=== PATIENT | female | born 1985 | race Caucasian/White ===

== ENCOUNTER 2016-05-17 17:08 | Emergency (ER) | payer BC ==
[2016-05-17 18:29] LABS: Hematocrit 38 % (35-47); Hemoglobin 12.8 g/dl (12.0-16.0); Mean Corpuscular HGB Conc 34 g/dl (31-36); Mean Corpuscular Hemoglobin 30 pg (27-31); Mean Corpuscular Volume 89 fL (80-97); Mean Platelet Volume 9 um3 (7.4-10.4); Red Blood Count 4.23 10^6/ul (4.0-5.4); Red Cell Distribution Width 13 % (10.5-15); White Blood Count 7.7 10^3/ul (3.5-10.8)
[2016-05-17 18:42] LABS: Albumin 4.6 g/dL (3.2-5.2); BUN/Creatinine Ratio 14.6 (8-20); Calcium 9.8 mg/dL (8.6-10.3); EGFR African American 106.8 (>60); Globulin 2.9 g/dL (2-4); Potassium 3.5 mmol/L (3.5-5.0); Total Bilirubin 0.8 mg/dL (0.2-1.0); Total Protein 7.5 g/dL (6.4-8.9)
[2016-05-17 18:43] LABS: Troponin I 0.03 ng/mL (<0.04)
--- NOTE | 2016-05-17 18:51 | ED ---
HPI Chest Pain - HPI Summary HPI Summary: 30 F w/ no PMH of chest pain for 2 days. She states the pain started out of no where yesterday with pain radiating to the left arm and dizziness. She states that she has had dizziness in the past but never associated with chest pain. She states yesterday she experienced the pain and she kept stumping due to the pain. Today she said the pain return and she got the dizziness and the pain down the left arm. She also got a new onset of frontal headache. She states she does not have a history of headaches nor does she have a family history of stroke. She denies any chest palpitations, SOB, weakness, or cough. She was seen in [facility] ED and was d/c home with meclizine. She states she has not taken the meclizine due to potential to make here drowsy. She has no cardiac risk factors: no smoking, OCP use, PMH of HTN and DM. Family history one uncle had bypass at age 73 no other cardiac history of history of DVT. - History of Current Complaint Chief Complaint: EDChestWallPain Time Seen by Provider: 05/17/16 18:20 Pain Intensity: 4 - Allergy/Home Medications Allergies/Adverse Reactions: Allergies Allergy/AdvReac Type Severity Reaction Status Date / Time Sulfa Drugs Allergy Intermediate Unknown Verified 04/17/15 11:29 Reaction Details PMH/Surg Hx/FS Hx/Imm Hx Endocrine/Hematology History: Denies: Hx Diabetes, Hx Thyroid Disease Cardiovascular History: Denies: Hx Hypertension Respiratory History: Reports: Hx Asthma - exercise induced. Denies: Hx Chronic Obstructive Pulmonary Disease (COPD) GI History: Denies: Hx Ulcer - Surgical History Surgery Procedure, Year, and Place: Surgical repair of cleft lip/palate @ 2weeks and aat 22yoa Infectious Disease History: No Infectious Disease History: Denies: Hx Clostridium Difficile, Hx Hepatitis, Hx Human Immunodeficiency Virus (HIV), Hx of Known/Suspected MRSA, Hx Shingles, Hx Tuberculosis, Hx Known/ Suspected VRE, Hx Known/Suspected VRSA, History Other Infectious Disease, Traveled Outside the [place] in Last 30 Days - Family History Known Family History: Positive: Cardiac Disease - Social History Alcohol Use: None Substance Use Type: Reports: None Smoking Status (MU): Never Smoked Tobacco Have You Smoked in the Last Year: No Review of Systems Negative: Fever Positive: Chest Pain. Negative: Palpitations Negative: Shortness Of Breath, Cough Negative: Abdominal Pain, Vomiting, Diarrhea, Nausea All Other Systems Reviewed And Are Negative: Yes Physical Exam Triage Information Reviewed: Yes Vital Signs On Initial Exam: Initial Vitals Temp Pulse Resp BP Pulse Ox 97.7 F 70 18 126/76 99 05/17/16 17:11 05/17/16 17:11 05/17/16 17:11 05/17/16 17:11 05/17/16 17:11 Vital Signs Reviewed: Yes Appearance: Positive: Well-Appearing Skin: Positive: Warm, Dry Head/Face: Positive: Normal Head/Face Inspection Eyes: Positive: Normal ENT: Positive: Normal ENT inspection, Pharynx normal, TMs normal Respiratory/Lung Sounds: Positive: Clear to Auscultation, Breath Sounds Present , Other - no reproducible chest pain Cardiovascular: Positive: Normal, RRR Abdomen Description: Positive: Nontender, Soft Bowel Sounds: Positive: Present Diagnostics - Vital Signs Vital Signs Temp Pulse Resp BP Pulse Ox 05/17/16 17:11 97.7 F 70 18 126/76 99 - Laboratory Lab Results: Lab Results 05/17/16 05/17/16 05/17/16 Range/Units 17:20 17:20 17:20 WBC 7.7 (3.5-10.8) 10^3/ul RBC 4.23 (4.0-5.4) 10^6/ul Hgb 12.8 (12.0-16.0) g/dl Hct 38 (35-47) % MCV 89 (80-97) fL MCH 30 (27-31) pg MCHC 34 (31-36) g/dl RDW 13 (10.5-15) % Plt Count 244 (150-450) 10^3/ul MPV 9 (7.4-10.4) um3 Neut % (Auto) 47.5 (38-83) % Lymph % (Auto) 44.3 (25-47) % Dent % (Auto) 6.4 (1-9) % Eos % (Auto) 1.3 (0-6) % Baso % (Auto) 0.5 (0-2) % Absolute Neuts (auto) 3.6 (1.5-7.7) 10^3/ul Absolute Lymphs (auto) 3.4 (1.0-4.8) 10^3/ul Absolute Monos (auto) 0.5 (0-0.8) 10^3/ul Absolute Eos (auto) 0.1 (0-0.6) 10^3/ul Absolute Basos (auto) 0 (0-0.2) 10^3/ul Absolute Nucleated RBC 0.01 10^3/ul Nucleated RBC % 0.1 D-Dimer, Quantitative < 200 (Less Than 230) ng/mL Sodium 138 (133-145) mmol/L Potassium 3.5 (3.5-5.0) mmol/L Chloride 106 (101-111) mmol/L Carbon Dioxide 25 (22-32) mmol/L Anion Gap 7 (2-11) mmol/L BUN 12 (6-24) mg/dL Creatinine 0.82 (0.51-0.95) mg/dL Est GFR ( Amer) 106.8 (>60) Est GFR (Non-Af Amer) 83.0 (>60) BUN/Creatinine Ratio 14.6 (8-20) Glucose 94 (70-100) mg/dL Lactic Acid (0.5-2.0) mmol/L Calcium 9.8 (8.6-10.3) mg/dL Total Bilirubin 0.80 (0.2-1.0) mg/dL AST 25 (13-39) U/L ALT 14 (7-52) U/L Alkaline Phosphatase 44 (34-104) U/L Troponin I 0.03 (<0.04) ng/mL C-React Prot High Sens 0.65 mg/L Total Protein 7.5 (6.4-8.9) g/dL Albumin 4.6 (3.2-5.2) g/dL Globulin 2.9 (2-4) g/dL Albumin/Globulin Ratio 1.6 (1-3) 05/17/16 Range/Units 17:20 WBC (3.5-10.8) 10^3/ul RBC (4.0-5.4) 10^6/ul Hgb (12.0-16.0) g/dl Hct (35-47) % MCV (80-97) fL MCH (27-31) pg MCHC (31-36) g/dl RDW (10.5-15) % Plt Count (150-450) 10^3/ul MPV (7.4-10.4) um3 Neut % (Auto) (38-83) % Lymph % (Auto) (25-47) % Dent % (Auto) (1-9) % Eos % (Auto) (0-6) % Baso % (Auto) (0-2) % Absolute Neuts (auto) (1.5-7.7) 10^3/ul Absolute Lymphs (auto) (1.0-4.8) 10^3/ul Absolute Monos (auto) (0-0.8) 10^3/ul Absolute Eos (auto) (0-0.6) 10^3/ul Absolute Basos (auto) (0-0.2) 10^3/ul Absolute Nucleated RBC 10^3/ul Nucleated RBC % D-Dimer, Quantitative (Less Than 230) ng/mL Sodium (133-145) mmol/L Potassium (3.5-5.0) mmol/L Chloride (101-111) mmol/L Carbon Dioxide (22-32) mmol/L Anion Gap (2-11) mmol/L BUN (6-24) mg/dL Creatinine (0.51-0.95) mg/dL Est GFR ( Amer) (>60) Est GFR (Non-Af Amer) (>60) BUN/Creatinine Ratio (8-20) Glucose (70-100) mg/dL Lactic Acid 1.3 (0.5-2.0) mmol/L Calcium (8.6-10.3) mg/dL Total Bilirubin (0.2-1.0) mg/dL AST (13-39) U/L ALT (7-52) U/L Alkaline Phosphatase (34-104) U/L Troponin I (<0.04) ng/mL C-React Prot High Sens mg/L Total Protein (6.4-8.9) g/dL Albumin (3.2-5.2) g/dL Globulin (2-4) g/dL Albumin/Globulin Ratio (1-3) Result Diagrams: 05/17/16 17:20 05/17/16 17:20 Lab Statement: Any lab studies that have been ordered have been reviewed, and results considered in the medical decision making process. - Radiology chest Xray Interpretation: No Acute Changes Radiology Interpretation Completed By: Radiologist - CT head CT Interpretation: No Acute Changes CT Interpretation Completed By: Radiologist - EKG No standard instances Cardiac Rate: NL EKG Rhythm: Sinus Rhythm Chest Pain Course/Dx - Course Course Of Treatment: 30 F w/ no PMH presents with chest pain for 2 days. She was worked up for this pain at [facility] yesterday and nothing was found. Today she says pain started again although this time she has a headache which she did not have before. She has no cardiac risk factors or family history beside an uncle who she states is unhealthy. performed cardiac workup including ekg, chest xray, tropinon, and d-dimer which was normal, did ct head was normal, discussed results, gave referral for entry level sales consultant, patient d/c home, agrees with plan - Chest Pain Differential Diagnosis/HQI/PQRI: ACS, Chest Wall, Pulmonary Embolism - Diagnoses Provider Diagnoses: Chest pain Discharge - Discharge Plan Condition: Good Disposition: HOME Patient Education Materials: Noncardiac Chest Pain (ED) Referrals: [facility] [Outside] Kaushal Gracia MD [Medical Doctor] - Additional Instructions: Take Tylenol or ibuprofen for pain every 6 hours as needed Establish care with primary care physician Follow up with cardiology Return to ED if develop shortness of breath, fever, or any new or worsening symptoms
--- NOTE | 2016-05-17 19:46 | RAD ---
INDICATION: Chest pain and heaviness COMPARISON: None TECHNIQUE: PA and lateral views of the chest were obtained. FINDINGS: The heart and mediastinum are normal in size and contour. The lungs are grossly clear. There is no evidence of large pleural effusion. Visualized bones are normal for the patient's age. There is no radiographic evidence of free air beneath the diaphragm IMPRESSION: No radiographic evidence of acute cardiopulmonary disease.
--- NOTE | 2016-05-17 19:51 | RAD ---
INDICATION: Headache and dizziness COMPARISON: None. TECHNIQUE: Contiguous axial sections of the brain were obtained from the skull base to the vertex without contrast. FINDINGS: The ventricles, cisterns and sulci are within normal limits. The pinon-white matter differentiation is adequately maintained and there is no sulcal effacement. No significant focal abnormality or mass effect is present. There is no evidence for intracranial hemorrhage. No significant focal osseous abnormality is present. The visualized portion of the paranasal sinuses and mastoid air cells appear clear. IMPRESSION: Normal CT of the brain.
[2016-05-17 20:21] VITALS: BP 114/66
== END 2016-05-17 20:20 | disposition home or self-care (01) ==
LOC: ED 17:08
DX: R07.9 Chest pain, unspecified (principal); R42 Dizziness and giddiness
CPT/HCPCS: 36415; 70450; 71020; 80053; 83605; 84484; 85025; 85379; 86141; 93005; 99284

== ENCOUNTER 2016-07-01 08:58 | Emergency (ER) | payer BC ==
[2016-07-01 09:28] VITALS: BP 116/67
--- NOTE | 2016-07-01 10:34 | UC ---
Throat Pain/Nasal Bob HPI - HPI Summary HPI Summary: For a couple weeks pt has had ST with nasal congestion, cough. Daughter had RSV , then was diagnosed with strep a week ago. ST has suddenly worsened in the last day or two. Pt still has lingering cough, but no new respiratory symptoms. Denies fever, rash, or vomiting. - History of Current Complaint Chief Complaint: UCRespiratory Stated Complaint: THROAT Time Seen by Provider: 07/01/16 10:13 Hx Obtained From: Patient Hx Last Menstrual Period: 06/11/16 ?: No Onset/Duration: Gradual Onset, Lasting Weeks Severity: Mild Cough: None Associated Signs & Symptoms: Positive: Nasal Discharge - Allergies/Home Medications Allergies/Adverse Reactions: Allergies Allergy/AdvReac Type Severity Reaction Status Date / Time Sulfa Drugs Allergy Intermediate Unknown Verified 07/01/16 09:28 Reaction Details Home Medications: Home Medications Levonorgestrel (IUD) (NF) [Mirena (NF)] 20 mcg IU ONCE 07/01/16 [History Confirmed 07/01/16] PMH/Surg Hx/FS Hx/Imm Hx Endocrine History Of: Denies: Diabetes, Thyroid Disease Cardiovascular History Of: Reports: Cardiac Disorders - murmur as child Denies: Hypertension Respiratory History Of: Reports: Asthma - exercise induced. Denies: COPD GI/ History Of: Denies: Ulcer - Surgical History Surgical History: Yes Surgery Procedure, Year, and Place: Surgical repair of cleft lip/palate @ 2weeks and aat 22yoa - Family History Known Family History: Positive: Cardiac Disease - Social History Occupation: Employed Full-time Alcohol Use: Occasionally Substance Use Type: None Smoking Status (MU): Never Smoked Tobacco Have You Smoked in the Last Year: No - Immunization History Most Recent Influenza Vaccination: 02/04/15 Most Recent Tetanus Shot: 02/04/15 Most Recent Pneumonia Vaccination: never Review of Systems Constitutional: Negative Skin: Negative Eyes: Negative ENT: Sore Throat, Nasal Discharge Respiratory: Negative Cardiovascular: Negative Gastrointestinal: Negative Genitourinary: Negative Motor: Negative Neurovascular: Negative Musculoskeletal: Negative Neurological: Negative Psychological: Negative All Other Systems Reviewed And Are Negative: Yes Physical Exam Triage Information Reviewed: Yes Appearance: Well-Appearing, No Pain Distress, Well-Nourished Vital Signs: Initial Vital Signs Temp 97.9 F 07/01/16 09:25 Pulse 59 07/01/16 09:25 Resp 14 07/01/16 09:25 BP 116/67 07/01/16 09:25 Pulse Ox 100 07/01/16 09:25 ENT Exam: Other - scars from cleft lip/palate repair ENT: Positive: Hearing grossly normal, Pharynx normal - with post-surgical changes, no erythema, Nasal congestion, TMs normal Dental Exam: Normal Neck exam: Normal Neck: Positive: Supple, Nontender, No Lymphadenopathy Respiratory Exam: Normal Respiratory: Positive: Chest non-tender, Lungs clear, Normal breath sounds, No respiratory distress, No accessory muscle use Cardiovascular Exam: Normal Cardiovascular: Positive: RRR, No Murmur Musculoskeletal Exam: Normal Neurological Exam: Normal Psychological Exam: Normal Skin Exam: Normal Throat Pain/Nasal Course/Dx - Differential Dx/Diagnosis Provider Diagnoses: Viral pharyngitis Discharge - Discharge Plan Condition: Stable Disposition: HOME Patient Education Materials: Pharyngitis (ED) Additional Instructions: Rapid strep is negative; it is most likely a viral infection. While many viruses that cause sore throat also cause cough and nasal congestion, some will simply leave you with a lingering sore throat for days or weeks. Use pain relievers such as acetaminophen or ibuprofen, and at bedtime I recommend you gargle with a numbing agent such a chloraseptic or antiseptic mouthwash.
== END 2016-07-01 10:41 | disposition home or self-care (01) ==
LOC: UCCORT 08:58
DX: J02.8 Acute pharyngitis due to other specified organisms (principal); B97.89 Other viral agents as the cause of diseases classified elsewhere; R09.81 Nasal congestion; J45.990 Exercise induced bronchospasm; Z88.2 Allergy status to sulfonamides
CPT/HCPCS: 87651; 99211; G0463

== ENCOUNTER 2017-03-12 19:09 | Emergency (ER) | payer BC ==
[2017-03-12 19:20] VITALS: BP 121/70
[2017-03-12] MEDS ORDERED: Cephalexin CAP* 500 MG PO ONE (19:37)
[2017-03-12] MEDS ORDERED: Phenazopyridine TAB* 100 MG PO ONE (19:42)
--- NOTE | 2017-03-12 19:42 | UC ---
Complaint Female HPI - HPI Summary HPI Summary: 1 day of dysuria and lower abdominal pain, denies fever - History Of Current Complaint Chief Complaint: UCGU Stated Complaint: URINARY Time Seen by Provider: 03/12/17 19:34 Hx Obtained From: Patient Hx Last Menstrual Period: 03/12/17 on BCP ?: No Onset/Duration: Sudden Onset Timing: Constant Severity Initially: Moderate Severity Currently: Moderate Character: Burning Aggravating Factor(s): Urination - Allergies/Home Medications Allergies/Adverse Reactions: Allergies Allergy/AdvReac Type Severity Reaction Status Date / Time Sulfa Drugs Allergy Intermediate Unknown Verified 03/12/17 19:20 Reaction Details Home Medications: Home Medications Control Pill 1 tab DAILY 03/12/17 [History Confirmed 03/12/17] PMH/Surg Hx/FS Hx/Imm Hx Previously Healthy: Yes - Surgical History Surgical History: Yes Surgery Procedure, Year, and Place: Surgical repair of cleft lip/palate @ 2weeks and aat 22yoa - Family History Known Family History: Positive: Cardiac Disease - Social History Alcohol Use: Occasionally Substance Use Type: None Smoking Status (MU): Never Smoked Tobacco Have You Smoked in the Last Year: No - Immunization History Most Recent Influenza Vaccination: 02/04/15 Most Recent Tetanus Shot: 02/04/15 Most Recent Pneumonia Vaccination: never Review of Systems Constitutional: Negative Skin: Negative Eyes: Negative ENT: Negative Respiratory: Negative Cardiovascular: Negative Gastrointestinal: Abdominal Pain Genitourinary: Dysuria, Hematuria, Frequency, Urgency Motor: Negative Neurovascular: Negative Musculoskeletal: Negative Neurological: Headache Psychological: Negative Is Patient Immunocompromised?: No All Other Systems Reviewed And Are Negative: Yes Physical Exam Triage Information Reviewed: Yes Appearance: Well-Appearing, Well-Nourished, Pain Distress Vital Signs: Initial Vital Signs Temp 98.0 F 03/12/17 19:16 Pulse 75 03/12/17 19:16 Resp 16 03/12/17 19:16 BP 121/70 03/12/17 19:16 Pulse Ox 99 03/12/17 19:16 Vital Signs Reviewed: Yes Eye Exam: Normal Eyes: Positive: Conjunctiva Clear ENT Exam: Normal ENT: Positive: Hearing grossly normal, Pharynx normal, TMs normal Dental Exam: Normal Neck exam: Normal Neck: Positive: Supple, Nontender Respiratory Exam: Normal Respiratory: Positive: Chest non-tender, Lungs clear, Normal breath sounds Cardiovascular Exam: Normal Cardiovascular: Positive: RRR, No Murmur, Pulses Normal Abdominal Exam: Normal Abdomen Description: Positive: Nontender, No Organomegaly, Soft, CVA Tenderness (R) - neg, CVA Tenderness (L) - neg Bowel Sounds: Positive: Present Musculoskeletal Exam: Normal Musculoskeletal: Positive: Strength Intact, ROM Intact, No Edema Neurological Exam: Normal Psychological Exam: Normal Complaint Female Dx - Course Course Of Treatment: hx obtained, exam performed ,meds reviewed, UA pos fo leuks and blood,sent for culture, treated - Differential Dx/Diagnosis Differential Diagnosis/HQI/PQRI: Ureteral Stone, Urinary Tract Infection Provider Diagnoses: UTI Discharge - Discharge Plan Condition: Stable Disposition: HOME Prescriptions: Cephalexin CAP* [Keflex CAP*] 500 mg PO TID #13 cap Patient Education Materials: Urinary Tract Infection in Women (ED) Additional Instructions: 1. take the medication as prescribed. 2. increase fluid intake and follow up with any increase in symptoms
[2017-03-12] MEDS ORDERED: Phenazopyridine TAB* 100 MG ONE (19:43)
[2017-03-12] MEDS ORDERED: Phenazopyridine 200 mg (NF) 200 MG TAB PO SCH (21:00)
== END 2017-03-12 19:49 | disposition home or self-care (01) ==
LOC: UCCORT 19:09
DX: N39.0 Urinary tract infection, site not specified (principal); Z88.2 Allergy status to sulfonamides
CPT/HCPCS: 81003; 87086; 99212; A9270-GY; G0463

== ENCOUNTER 2017-04-04 11:02 | Emergency (ER) | payer BC ==
[2017-04-04] MEDS ORDERED: Ketorolac INJ* 60 MG/2 ML VIAL IM ONE (12:05)
--- NOTE | 2017-04-04 12:15 | UC ---
Headache HPI - HPI Summary HPI Summary: 3 days of head ache pressure behind her eyes "worst head ache" was nauseated this morning but resolved and has been tolerating ibuprofen well. No change in meds, diet or caffeine, currently having her period - History Of Current Complaint Chief Complaint: UCGeneralIllness Stated Complaint: HEADACHE Time Seen by Provider: 04/04/17 11:43 Hx Obtained From: Patient Hx Last Menstrual Period: 04/04/17 ?: No Onset/Duration: Gradual Onset, Lasting Days - 3, Still Present Onset Of Symptoms: Gradual, Still Present Initially Headache Was: "Worst Headache Ever" Pain Intensity: 10 Character: Throbbing, Pressure Location of Headache: Frontal, Temporal Aggravating Factor(s): Exertion, Bright Lights Allevating Factor(s): Rest, Medication Associated Signs And Symptoms: Positive: Nausea. Negative: Sinus Pressure - Allergies/Home Medications Allergies/Adverse Reactions: Allergies Allergy/AdvReac Type Severity Reaction Status Date / Time Sulfa Drugs Allergy Intermediate Unknown Verified 04/04/17 11:23 Reaction Details PMH/Surg Hx/FS Hx/Imm Hx Previously Healthy: Yes - Surgical History Surgical History: Yes Surgery Procedure, Year, and Place: Surgical repair of cleft lip/palate @ 2weeks and at 22yoa - Family History Known Family History: Positive: Cardiac Disease - Social History Occupation: Employed Full-time Lives: With Family Alcohol Use: Occasionally Substance Use Type: None Smoking Status (MU): Never Smoked Tobacco Have You Smoked in the Last Year: No - Immunization History Most Recent Influenza Vaccination: no Most Recent Tetanus Shot: 02/04/15 Most Recent Pneumonia Vaccination: never Review of Systems Constitutional: Negative Skin: Negative Eyes: Negative ENT: Negative Respiratory: Negative Cardiovascular: Negative Gastrointestinal: Negative Genitourinary: Negative Motor: Negative Neurovascular: Negative Musculoskeletal: Negative Neurological: Headache Psychological: Negative Is Patient Immunocompromised?: No All Other Systems Reviewed And Are Negative: Yes Physical Exam Triage Information Reviewed: Yes Appearance: Well-Appearing, No Pain Distress, Well-Nourished Vital Signs: Initial Vital Signs Temp 98.3 F 04/04/17 11:23 Pulse 60 04/04/17 11:23 Resp 16 04/04/17 11:23 BP 122/67 04/04/17 11:23 Pulse Ox 99 04/04/17 11:23 Vital Signs Reviewed: Yes Eye Exam: Normal Eyes: Positive: Conjunctiva Clear, Other: - perrla, eomi ENT Exam: Normal ENT: Positive: Normal ENT inspection, Hearing grossly normal, Pharynx normal, Nasal congestion, Nasal drainage, TMs normal, Uvula midline. Negative: Tonsillar swelling, Tonsillar exudate, Trismus, Muffled voice, Hoarse voice, Sinus tenderness Dental Exam: Normal Neck exam: Normal Neck: Positive: Supple, Nontender Respiratory Exam: Normal Respiratory: Positive: Chest non-tender, Lungs clear, Normal breath sounds, No respiratory distress, No accessory muscle use Cardiovascular Exam: Normal Cardiovascular: Positive: RRR, No Murmur, Pulses Normal, Brisk Capillary Refill Musculoskeletal Exam: Normal Musculoskeletal: Positive: Strength Intact, ROM Intact, No Edema Neurological Exam: Normal Neurological: Positive: Alert, Muscle Tone Normal Psychological Exam: Normal Skin Exam: Normal Diagnostics - Radiology No standard instances Xray Interpretation: Positive (See Comments) - Chronic Mastoiditis Radiology Interpretation Completed By: Radiologist Re-Evaluation - Re-Evaluation First Eval Change: Improved Headache Course/Dx - Course Course Of Treatment: rest ibuprofen follow with ENT - Differential Dx/Diagnosis Provider Diagnoses: TEnsion Headache, Chronic MAstoiditis Discharge - Discharge Plan Condition: Stable Disposition: HOME Patient Education Materials: Ibuprofen (By mouth), General Headache (ED) Referrals: [place] Vizcarra MD [Medical Doctor] - 1 Week
[2017-04-04 13:16] VITALS: BP 108/70
--- NOTE | 2017-04-04 13:25 | RAD ---
HISTORY: Headache, photosensitivity, nausea COMPARISONS: June 13, 2016 TECHNIQUE: Multiple contiguous axial CT scans were obtained of the head without intravenous contrast. FINDINGS: HEMORRHAGE/INFARCT: There is no hemorrhage or acute infarct. MASSES/SHIFT: There is no mass or shift. EXTRA-AXIAL SPACES: There are no extra-axial fluid collections. SULCI AND VENTRICLES: The sulci and ventricles are normal in size and position for the patient's stated age. CEREBRUM: There are no focal parenchymal abnormalities. BRAINSTEM: There are no focal parenchymal abnormalities. CEREBELLUM: There are no focal parenchymal abnormalities. VESSELS: The vessels are grossly normal. PARANASAL SINUSES: The paranasal sinuses are clear. The mastoid air cells are sclerotic and coalescent ORBITS: The orbits are unremarkable. BONES AND SOFT TISSUE: No bone or soft tissue abnormalities are noted. OTHER: None IMPRESSION: NO ACUTE INTRACRANIAL PATHOLOGY. FINDINGS SUGGESTIVE OF CHRONIC MASTOIDITIS.
== END 2017-04-04 13:47 | disposition home or self-care (01) ==
LOC: UCCORT 11:02
DX: G44.209 Tension-type headache, unspecified, not intractable (principal); H70.10 Chronic mastoiditis, unspecified ear; Z88.2 Allergy status to sulfonamides
CPT/HCPCS: 70450; 96372; 99212; G0463; J1885

== ENCOUNTER 2017-11-15 11:16 | Emergency (ER) | payer BC ==
--- NOTE | 2017-11-15 11:20 | UC ---
Throat Pain/Nasal Bob HPI - HPI Summary HPI Summary: Patient to urgent care today with chief complaint of 2 days of sore throat. also has same complaint. Daughter was seen and diagnosed with strep pharyngitis - History of Current Complaint Chief Complaint: UCRespiratory Stated Complaint: ST Time Seen by Provider: 11/15/17 11:18 Hx Obtained From: Patient Hx Last Menstrual Period: 04/04/17 ?: Yes Onset/Duration: Sudden Onset, Lasting Days - 2, Still Present Severity: Moderate Cough: None Associated Signs & Symptoms: Positive: Negative - Allergies/Home Medications Allergies/Adverse Reactions: Allergies Allergy/AdvReac Type Severity Reaction Status Date / Time Sulfa (Sulfonamide Allergy Intermediate Unknown Verified 11/15/17 11:34 Antibiotics) Reaction Details Home Medications: Home Medications Pnv No.95/Ferrous Fum/Folic AC [ Multivitamin Tablet] 1 each PO DAILY [History Confirmed 11/15/17] PMH/Surg Hx/FS Hx/Imm Hx Previously Healthy: Yes - Surgical History Surgical History: Yes Surgery Procedure, Year, and Place: Surgical repair of cleft lip/palate @ 2weeks and at 22yoa - Family History Known Family History: Positive: Cardiac Disease - Social History Occupation: Employed Full-time Lives: With Family Alcohol Use: Occasionally Substance Use Type: None Smoking Status (MU): Never Smoked Tobacco Have You Smoked in the Last Year: No - Immunization History Most Recent Influenza Vaccination: no Most Recent Tetanus Shot: 02/04/15 Most Recent Pneumonia Vaccination: never Review of Systems Constitutional: Negative Skin: Negative Eyes: Negative ENT: Sore Throat Respiratory: Negative Cardiovascular: Negative Gastrointestinal: Negative Genitourinary: Negative Motor: Negative Neurovascular: Negative Musculoskeletal: Negative Neurological: Negative Psychological: Negative Is Patient Immunocompromised?: No All Other Systems Reviewed And Are Negative: Yes Physical Exam Triage Information Reviewed: Yes Appearance: Well-Appearing, No Pain Distress, Well-Nourished Vital Signs Reviewed: Yes Eye Exam: Normal Eyes: Positive: Conjunctiva Clear ENT Exam: Normal ENT: Positive: Normal ENT inspection, Hearing grossly normal, Pharyngeal erythema, Uvula midline. Negative: Nasal congestion, Tonsillar exudate, Trismus , Muffled voice, Hoarse voice, Dental tenderness, Sinus tenderness Dental Exam: Normal Neck exam: Normal Neck: Positive: Supple, Nontender, No Lymphadenopathy Respiratory Exam: Normal Respiratory: Positive: Chest non-tender, No respiratory distress, No accessory muscle use Cardiovascular Exam: Normal Cardiovascular: Positive: RRR, Brisk Capillary Refill Musculoskeletal Exam: Normal Musculoskeletal: Positive: Strength Intact, ROM Intact, No Edema Neurological Exam: Normal Neurological: Positive: Alert, Muscle Tone Normal Psychological Exam: Normal Skin Exam: Normal Throat Pain/Nasal Course/Dx - Course Assessment/Plan: Amoxicillin for pharyngitis, Tylenol when necessary for pain increase fluids rest work note for today November 15 and tomorrow November 16. Follow with PCP when necessary - Differential Dx/Diagnosis Provider Diagnoses: Pharyngitis, strep exposure Discharge - Sign-Out/Discharge Documenting (check all that apply): Discharge/Admit/Transfer - Discharge Plan Condition: Stable Disposition: HOME Prescriptions: Amoxicillin PO (*) [Amoxicillin 875 MG (*)] 875 mg PO BID 10 Days #20 tab Patient Education Materials: Pharyngitis (ED) Forms: *Work Release Referrals: MARILEE Simeon [Medical Doctor] - - Billing Disposition and Condition Condition: STABLE Disposition: Home
[2017-11-15 11:36] VITALS: BP 108/62
== END 2017-11-15 11:56 | disposition home or self-care (01) ==
LOC: UCCORT 11:16
DX: J02.9 Acute pharyngitis, unspecified (principal); Z20.89 Contact with and (suspected) exposure to other communicable diseases; Z88.2 Allergy status to sulfonamides
CPT/HCPCS: 99212; G0463

== ENCOUNTER 2018-06-11 17:36 | Inpatient (IN) | payer BC ==
[~2018-06-11 17:36] MED LIST: Buffered Lidocaine 1% SYRIN* 1 ML/SYRINGE INTRADERM ONE; Dinoprostone* 10 MG VAG.SUPP VAGINAL ONE; Lactated Ringers 1000 ML Bag* 1,000 ML IV ONE; Lactated Ringers 1000 ML Bag* 1,000 ML IV SCH; Nalbuphine* 10 MG/ML 1 ML VIAL IM ONE; Promethazine INJ(RESTRICTED)* 25 MG/ML 1 ML VIAL IM ONE
--- NOTE | 2018-06-11 18:35 | HP ---
General Information - Reason for Visit cervical ripening - General Information Maternal Age: 32 Grav: 2 Para: 1 SAB: 0 IEA: 0 Estimated Due Date: 06/09/18 Determined By: LMP Maternal Blood Type and Rh: A Positive - Results this Serology/RPR Result: Non-Reactive Rubella Result: Immune HBsAg Result: Negative HIV Result: Negative GBS Culture Result: Negative Past Medical History Delivery History: Hx Uncomplicated Vaginal Delivery Pertinent Past Medical History: See Records - cleft lip Pertinent Past Surgical History: See Records - cleft lip repair Pertinent Family History: See Records - Antepartal Records Antepartal Records: Reviewed, Complicated by: Review of Systems Constitutional: Comfortable CV Complaint: No Respiratory: Shortness of Breath: No Gastrointestinal: No Nausea/Vomiting, Normal Bowel Movement Genitourinary: No Dysuria, No Bleeding, No Leaking Fluid Musculoskeletal: No Complaint, No Epigastric Pain Neurological: No Headache, No Visual Changes Movement: Normal Exam Allergies/Adverse Reactions: Allergies Sulfa (Sulfonamide Antibiotics) Allergy (Intermediate, Verified 11/15/17 11:34) Unknown Reaction Details T:98.9, P:75, R:18, BP: 125/63, O2:100% - Measurements Height: 5 ft 7 in Weight: 176 lb Weight in lbs: [phone] Body Mass Index (BMI): 27.6 Pre- Weight: 140 lb Weight Gained This : 36 lbs and 0 ozs - Exam Breast: Breast Exam Deferred CVA: No CVA Tenderness Extremities: No Edema Heart: Normal Rhythm/Heart Sounds HEENT: No Significant Findings Lungs: Clear Bilaterally Rectal: Rectal Exam Deferred Reflexes: DTR 2+ Thyroid: No Thyromegaly - Abdominal Exam Abdomen Exam: Fundal Height Consistent with Dates - Ultrasound/Biophysical Profile Ultrasound Status: Not Done Targeted Exam Findings Estimated Weight: 7lbs 14oz Cervical Exam: 2cm Effacement: 60% Station: -1 Presenting Part: Vertex Membrane Status: Intact Bleeding/Discharge: None EFM Findings - External Monitor Findings Baseline Heart Rate: 120 External Monitor Findings: Accelerations Present, No Pattern of Variable or Late Decelerations, Variability Moderate, Baseline Stable Contractions: Irregular, Mild, < 45 Seconds Contraction Frequency: 2-6min Assessment/Plan - Assessment 32 y.o. , 40w2d, cervical ripening - Plan Plan: Cervical Ripening - Date/Time of Admission Date of Admission: 06/11/18 Time of Admission: 18:40
[2018-06-12 10:33] LABS: Hematocrit 35 % (35-47); Hemoglobin 12.2 g/dl (12.0-16.0); Mean Corpuscular HGB Conc 35 g/dl (31-36); Mean Corpuscular Hemoglobin 31 pg (27-31); Mean Corpuscular Volume 88 fL (80-97); Mean Platelet Volume 9.4 fL (7.4-10.4); Platelet Count 171 10^3/ul (150-450); Red Blood Count 3.93 10^6/ul (4.00-5.40); Red Cell Distribution Width 13 % (10.5-15); White Blood Count 8.7 10^3/ul (3.5-10.8)
--- NOTE | 2018-06-12 13:03 | PN ---
Progress Note - Progress Note Date of Service: 06/12/18 - 9:30AM SOAP: Subjective: [Pt reports she slept alright overnight. Pt states cramping has given way to irregular moderate ctx. Pt desires epidural at some point for labor pain mgmt. ] Objective: [BP:123/73, P:68, T:98.1, FHT: 140bpm, +accels, -decels, moderate variability ctx q 2-3min, AROM: meconium. cervix:3/80/-1] Assessment: [32 y.o. , 40w3d EGA, early labor, cat I tracing] Plan: [1) AROM 2) Ambulation and position changes 3) Consider pitocin if no active labor in a few hours 4) Reviewed R/B of induction and mgmt options and questions answered to pt satisfaction]
--- NOTE | 2018-06-12 13:12 | PN ---
Progress Note - Progress Note Date of Service: 06/12/18 SOAP: Subjective: [Pt breathing through contractions, reports that they are still mild-moderate. Pt still desires epidural but declines it at this time. Pt c/o left leg pain with ambulation.] Objective: [BP:128/65, T:98.2, FHT: 140bpm, +accels, occasional variable, moderate variability cervix: 4-5/80/-1.] Assessment: [32 y.o. , FT, early labor, cat I tracing] Plan: [1) Position changes for descent 2) cont current care]
[2018-06-12] MEDS ORDERED: OBEPIDURAL* 250 ML EPIDURAL ONE (14:34)
[2018-06-12] MEDS ORDERED: Lactated Ringers 1000 ML Bag* 1,000 ML IV ONE (15:09)
[2018-06-12] MEDS ORDERED: Sodium Citrate/Citric Acid* 15 ML UDC PO PRN (15:09)
[2018-06-12] MEDS ORDERED: Phenylephrine IV* 40 MCG/ML 10 ML SYRINGE IV PUSH PRN ×2 (15:09)
[2018-06-12] MEDS ORDERED: Lactated Ringers 1000 ML Bag* 500 ML IV PRN (15:09)
--- NOTE | 2018-06-12 15:21 | PN ---
Progress Note - Progress Note Date of Service: 06/12/18 SOAP: Subjective: [Pt more comfortable with epidural. Pt denies pressure, reports continued leaking of greenish brown fluid.] Objective: [122/69, FHT: 140bpm, +accels, -decels, moderate variability, ctx q 2 min cervix: 5.5/80/-1] Assessment: [32 y.o. , 40w3d, active labor] Plan: [1) Position changes for descent 2) Anticipate vaginal deliery]
[2018-06-12] MEDS ORDERED: OBEPIDURAL* 250 ML EPIDURAL SCH (16:00)
[2018-06-12] MEDS ORDERED: Lactated Ringers 1000 ML Bag* 1,000 ML IV SCH ×2 (16:00→21:00)
[2018-06-12] MEDS ORDERED: Oxytocin in LR* 20 UNITS/1,000 ML BAG IVPB ONE (17:25)
--- NOTE | 2018-06-12 17:28 | PN ---
Progress Note - Progress Note Date of Service: 06/12/18 SOAP: Subjective: [Pt reports increase in pressure and pain but denies an urge to push.] Objective: [113/95, P:63, FHT:130bpm, +accels, -decels, moderate variability, ctq mild- moderate q4min cervix: 6/80/-1] Assessment: [32 y.o. , [id number], protracted labor.] Plan: [1) Reviewed options and R/B of pitocin augmentation 2) Low dose pitocin starting at 3mu.]
[2018-06-12] MEDS ORDERED: Oxytocin in LR* 20 UNITS/1,000 ML BAG IVPB SCH (18:00)
[2018-06-12] MEDS ORDERED: Dibucaine 1% 28.35 GM TUBE PR PRN (20:55)
[2018-06-12] MEDS ORDERED: Witch Hazel PAD* JAR TOPICAL PRN (20:55)
[2018-06-12] MEDS ORDERED: Glycerin ADULT SUPP PR PRN (20:55)
--- NOTE | 2018-06-12 20:55 | PROCNOTE ---
[facility] OB: Delivery Note - Delivery A Date of : 06/12/18 Time of : 20:44 Sex: Female Score 1 Minute: 9 Score 5 Minutes: 9 Gestational Age in Weeks and Days at Delivery: 40 Weeks and 3 Days Delivery Method: Spontaneous Vaginal Labor: Spontaneous Amniotic Fluid: Meconium Estimated Blood Loss: 150 Anesthesia/Analgesia: CEI for Labor Delivered By: Joyce Flores - Nursery Level of Nursery: Regular/Bedside - Perineum Perineal Injury: None/Intact - Events Delivery Events of Note: Pitocin During Labor Delivery Events of Note Comment: nuchal cord x 2
[2018-06-12] MEDS ORDERED: Simethicone TAB* 80 MG TAB.CHEW PO SCH (21:00)
[2018-06-12] MEDS: Ibuprofen TAB* 600 MG PO PRN (23:15)
[2018-06-13] MEDS: Ibuprofen TAB* 600 MG PO PRN ×3 (04:22→20:29)
[2018-06-13 07:14] LABS: ABS Basophils 0 10^3/ul (0-0.2); ABS Eosinophils 0.1 10^3/ul (0-0.6); ABS Lymphocytes 2.6 10^3/ul (1.0-4.8); ABS Monocytes 0.9 10^3/ul (0-0.8); ABS Neutrophils 9.3 10^3/ul (1.5-7.7); ABS Nucleated RBC 0 10^3/ul; Eosinophil % 0.9 %; Hematocrit 32 % (35-47); Hemoglobin 10.9 g/dl (12.0-16.0); Lymphocyte % 20.2 %; Mean Corpuscular HGB Conc 35 g/dl (31-36); Mean Corpuscular Hemoglobin 31 pg (27-31); Mean Corpuscular Volume 88 fL (80-97); Mean Platelet Volume 9.4 fL (7.4-10.4); Nucleated Red Blood Cells % 0.1; Platelet Count 157 10^3/ul (150-450); Red Blood Count 3.58 10^6/ul (4.00-5.40); Red Cell Distribution Width 13 % (10.5-15); White Blood Count 12.9 10^3/ul (3.5-10.8)
[2018-06-13] MEDS: Docusate CAP* 100 MG PO SCH ×3 (07:25→20:29)
[2018-06-13] MEDS: Ferrous Gluconate TAB* 324 MG TAB PO SCH (09:13)
[2018-06-13] MEDS: Acetaminophen TAB* 325 MG PO PRN ×2 (09:27→16:57)
[2018-06-13 20:05] VITALS: BP 117/68
[2018-06-14] MEDS: Ferrous Gluconate TAB* 324 MG TAB PO SCH (06:15)
[2018-06-14] MEDS: Docusate CAP* 100 MG PO SCH (08:46)
[2018-06-14] MEDS: Ibuprofen TAB* 600 MG PO PRN (08:46)
== END 2018-06-14 13:14 | disposition home or self-care (01) | DRG 560 ==
LOC: MCHOBOUT 17:36 → MCHOB 18:39
PROVIDERS: ADMIT Midwife; ATTEND Midwife
PROC: 10E0XZZ Delivery of Products of Conception, External Approach (ICD-10-PCS; principal; 2018-06-11)
PROC: 4A1HXCZ Monitoring of Products of Conception, Cardiac Rate, External Approach (ICD-10-PCS; 2018-06-11)
PROC: 10907ZC Drainage of Amniotic Fluid, Therapeutic from Products of Conception, Via Natural or Artificial Opening (ICD-10-PCS; 2018-06-11)
PROC: 3E033VJ Introduction of Other Hormone into Peripheral Vein, Percutaneous Approach (ICD-10-PCS; 2018-06-11)
DX: O48.0 Post-term pregnancy (principal); Z37.0 Single live birth; O69.81X0 Labor and delivery complicated by cord around neck, without compression, not applicable or unspecified; Z88.2 Allergy status to sulfonamides; Z3A.40 40 weeks gestation of pregnancy; O77.0 Labor and delivery complicated by meconium in amniotic fluid; O63.1 Prolonged second stage (of labor)
CPT/HCPCS: 36415; 85025; 85027; 86850; 86900; 86901; A9270-GY; J2300; J2550

== ENCOUNTER 2018-06-27 09:56 | Emergency (ER) | payer BC ==
[2018-06-27 11:12] VITALS: BP 133/87
[2018-06-27] MEDS ORDERED: Sodium Phosphate ADULT ENEMA* 118 ml bottle PR ONE (12:23)
--- NOTE | 2018-06-27 12:36 | UC ---
Abdominal Pain Female HPI - HPI Summary HPI Summary: Pt presents 2 weeks from atraumatic vaginal delivery. She c/o of no BM X 5 days. Pt reports that immediately post she ahd been having regular BM and over the last 5 days she feels the urge to have one but is unable to evacuate bowels. Pt also states that "inner tube looking flexh" protrudes from anus after attempting to have a BM. Pt states that she sees BRB on toilet paper after attempting to have BM. - History of Current Complaint Chief Complaint: UCGI Stated Complaint: PERSONAL Time Seen by Provider: 06/27/18 11:27 Hx Obtained From: Patient Hx Last Menstrual Period: unknown ?: No - 2 weeks post Onset/Duration: Gradual Onset, Lasting Days, Still Present Timing: Constant Severity Initially: Mild Severity Currently: Moderate Pain Intensity: 6 Location: Diffuse Radiates: No Character: Colicy, Dull Aggravating Factor(s): Other: - attempt to move bowel Alleviating Factor(s): Nothing Associated Signs and Symptoms: Positive: Constipation - Risk Factors Ectopic Risk Factor: Negative Ovarian Torsion Risk Factor: Reproductive Age Allergies/Adverse Reactions: Allergies Allergy/AdvReac Type Severity Reaction Status Date / Time Sulfa (Sulfonamide Allergy Intermediate Unknown Verified 06/27/18 11:09 Antibiotics) Reaction Details Home Medications: Home Medications Docusate CAP* [Colace Cap*] 100 mg PO TID 06/27/18 [History Confirmed 06/27/18] Sennosides [Ex-Lax] 30 mg PO BID 06/27/18 [History Confirmed 06/27/18] PMH/Surg Hx/FS Hx/Imm Hx Previously Healthy: Yes - Surgical History Surgical History: Yes Surgery Procedure, Year, and Place: Surgical repair of cleft lip/palate @ 2weeks and at 22yoa - Family History Known Family History: Positive: Cardiac Disease - Social History Occupation: Employed Full-time Lives: With Family Alcohol Use: None Substance Use Type: None Smoking Status (MU): Never Smoked Tobacco Have You Smoked in the Last Year: No - Immunization History Most Recent Influenza Vaccination: 02/26/18 Most Recent Tetanus Shot: 02/04/15 Most Recent Pneumonia Vaccination: never Review of Systems All Other Systems Reviewed And Are Negative: Yes Constitutional: Positive: Negative Skin: Positive: Negative Eyes: Positive: Negative ENT: Positive: Negative Respiratory: Positive: Negative Cardiovascular: Positive: Negative Gastrointestinal: Positive: Other - constipation Genitourinary: Positive: Negative Motor: Positive: Negative Neurovascular: Positive: Negative Musculoskeletal: Positive: Negative Neurological: Positive: Negative Psychological: Positive: Negative Is Patient Immunocompromised?: No Physical Exam Triage Information Reviewed: Yes Appearance: Well-Appearing Vital Signs: Initial Vital Signs Temp 98.4 F 06/27/18 11:06 Pulse 70 06/27/18 11:06 Resp 14 06/27/18 11:06 BP 133/87 06/27/18 11:06 Pulse Ox 100 06/27/18 11:06 Vital Signs Reviewed: Yes Eye Exam: Normal ENT Exam: Normal Dental Exam: Normal Neck exam: Normal Respiratory Exam: Normal Cardiovascular Exam: Normal Abdomen Description: Positive: Nontender Bowel Sounds: Positive: Present Pelvic Exam: Positive: Other - digital rectal exam done: no hemorrhoids, no fissures, rectum is not prolapsed, able to feel hardened stool at tip of my first finger. Morena ROSE present as credit historian Musculoskeletal Exam: Normal Neurological Exam: Normal Psychological Exam: Normal Skin Exam: Normal Abd Pain Female Course/Dx - Differential Dx/Diagnosis Differential Diagnosis: Bowel Obstruction, Constipation Provider Diagnosis: Constipation Discharge - Sign-Out/Discharge Documenting (check all that apply): Patient Departure All imaging exams completed and their final reports reviewed: No Studies - Discharge Plan Condition: Stable Disposition: HOME Patient Education Materials: Constipation (ED) Referrals: [facility] [Outside] - If Needed No Primary Care Phys,NOPCP [Primary Care Provider] - Additional Instructions: Please follow up with your PCP or OB provider as needed. - Billing Disposition and Condition Condition: STABLE Disposition: Home
== END 2018-06-27 13:02 | disposition home or self-care (01) ==
LOC: UCCORT 09:56
DX: O99.63 Diseases of the digestive system complicating the puerperium (principal); K59.00 Constipation, unspecified; Z88.2 Allergy status to sulfonamides
CPT/HCPCS: 99212; A9270-GY; G0463

== ENCOUNTER 2019-03-22 08:29 | Emergency (ER) | payer BC ==
[2019-03-22 08:41] VITALS: BP 118/73
--- NOTE | 2019-03-22 09:17 | UC ---
Eye Complaint HPI - HPI Summary HPI Summary: 33 yo female with bilateral eye irritation and discharge x 1 week crusted lashes URI symptoms itchy and irritated but no photophobia - History of Current Complaint Chief Complaint: UCGeneralIllness Stated Complaint: RIGHT EYE RED WITH DISCHARGE Time Seen by Provider: 03/22/19 09:09 Hx Obtained From: Patient Hx Last Menstrual Period: 03/16/19 Onset/Duration: Gradual Onset, Lasting Days - 7 Timing: Constant Severity Initially: Mild Severity Currently: Mild Pain Intensity: 0 Pain Scale Used: 0-10 Numeric Location of Injury: Conjunctiva Aggravating Factor(s): Nothing Alleviating Factor(s): Nothing Associated Signs And Symptoms: Positive: Drainage (Purulent) - Risk Factors Penetrating Injury Risk Factor: Negative Globe Rupture Risk Factors: Negative Acute Glaucoma Risk Factors: Negative Optic Artery Occlusion Risk Factors: Negative - Allergies/Home Medications Allergies/Adverse Reactions: Allergies Allergy/AdvReac Type Severity Reaction Status Date / Time Sulfa (Sulfonamide Allergy Intermediate Unknown Verified 03/22/19 08:36 Antibiotics) Reaction Details Home Medications: Home Medications Bisacodyl [Dulcolax] 1 tab PO QPM 03/22/19 [History Confirmed 03/22/19] D-Methorphan/PE/Acetaminophen [Day Time Cold-Flu Liquid] 30 ml PO ONCE 03/22/19 [History Confirmed 03/22/19] PMH/Surg Hx/FS Hx/Imm Hx Previously Healthy: Yes - Surgical History Surgical History: Yes Surgery Procedure, Year, and Place: Surgical repair of cleft lip/palate @ 2weeks and at 22yoa - Family History Known Family History: Positive: Cardiac Disease - Social History Alcohol Use: None Substance Use Type: None Smoking Status (MU): Never Smoked Tobacco Have You Smoked in the Last Year: No - Immunization History Most Recent Influenza Vaccination: 02/26/18 Most Recent Tetanus Shot: 02/04/15 Most Recent Pneumonia Vaccination: never Review of Systems All Other Systems Reviewed And Are Negative: Yes Constitutional: Positive: Negative Skin: Positive: Negative Eyes: Positive: Drainage, Eye Redness ENT: Positive: Nasal Discharge Respiratory: Positive: Cough Cardiovascular: Positive: Negative Gastrointestinal: Positive: Negative Genitourinary: Positive: Negative Motor: Positive: Negative Neurovascular: Positive: Negative Musculoskeletal: Positive: Negative Neurological: Positive: Negative Psychological: Positive: Negative Is Patient Immunocompromised?: Yes Physical Exam Triage Information Reviewed: Yes Appearance: Well-Appearing, No Pain Distress, Well-Nourished Vital Signs: Initial Vital Signs Temp 98.4 F 03/22/19 08:38 Pulse 64 03/22/19 08:38 Resp 18 03/22/19 08:38 BP 118/73 03/22/19 08:38 Pulse Ox 99 03/22/19 08:38 Vital Signs Reviewed: Yes Eyes: Positive: Conjunctiva Inflamed, Discharge, Other: - eomi/perrl ENT: Positive: Hearing grossly normal, Pharynx normal, Nasal congestion, TMs normal, Uvula midline - bifid. Negative: Nasal drainage, Tonsillar swelling, Tonsillar exudate, Trismus, Muffled voice, Hoarse voice, Dental tenderness, Sinus tenderness Dental Exam: Normal Neck: Positive: Supple, Nontender, No Lymphadenopathy Respiratory: Positive: Lungs clear, Normal breath sounds, No respiratory distress, No accessory muscle use Cardiovascular: Positive: RRR, No Murmur Musculoskeletal: Positive: ROM Intact, No Edema Neurological: Positive: Alert Psychological Exam: Normal Skin Exam: Normal Eye Complaint Course/Dx - Differential Dx/Diagnosis Provider Diagnosis: Bilateral conjunctivitis Discharge ED - Sign-Out/Discharge Documenting (check all that apply): Patient Departure All imaging exams completed and their final reports reviewed: No Studies - Discharge Plan Condition: Critical Disposition: HOME Prescriptions: Tobramycin 0.3% OPHTH.GINA* 1 drop BOTH EYES QID 7 Days #1 btl Patient Education Materials: Conjunctivitis (ED) Referrals: [facility] [place] [facility] [Outside] - If Needed Additional Instructions: recheck for worsening symptoms recheck in 4 days if not better I suggest you also use ZADITOR eye drops (OTC) - Billing Disposition and Condition Condition: CRITICAL Disposition: Home
== END 2019-03-22 09:26 | disposition home or self-care (01) ==
LOC: UCCORT 08:29
DX: H10.9 Unspecified conjunctivitis (principal); R05 Cough; R09.81 Nasal congestion; Z88.2 Allergy status to sulfonamides
CPT/HCPCS: 99212; G0463

== ENCOUNTER 2019-05-13 16:22 | Emergency (ER) | payer BC ==
[2019-05-13 17:06] VITALS: BP 117/79
--- NOTE | 2019-05-13 17:29 | UC ---
Complaint Female HPI - HPI Summary HPI Summary: Pt presents with c/o sudden onset of dysuria, pelvic pressure, urgency and frequency. 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 Pt also states that she is trying to get . - History Of Current Complaint Chief Complaint: UCGU Stated Complaint: URINARY COMPLAINT Time Seen by Provider: 05/13/19 16:59 Hx Obtained From: Patient Hx Last Menstrual Period: 04/19/19 ?: No Onset/Duration: Sudden Onset, Lasting Days, Still Present Timing: Constant Severity Initially: Mild Severity Currently: Mild Pain Intensity: 1 Character: Dull, Burning Aggravating Factor(s): Urination Associated Signs And Symptoms: Positive: Negative - Risk Factors Ectopic Risk Factor: Negative Ovarian Torsion Risk Factor: Reproductive Age - Allergies/Home Medications Allergies/Adverse Reactions: Allergies Allergy/AdvReac Type Severity Reaction Status Date / Time Sulfa (Sulfonamide Allergy Intermediate Unknown Verified 05/13/19 17:01 Antibiotics) Reaction Details PMH/Surg Hx/FS Hx/Imm Hx Previously Healthy: Yes - Surgical History Surgical History: Yes Surgery Procedure, Year, and Place: Surgical repair of cleft lip/palate @ 2weeks and at 22yoa - Family History Known Family History: Positive: Cardiac Disease - Social History Occupation: Employed Full-time Lives: With Family Alcohol Use: None Substance Use Type: None Smoking Status (MU): Never Smoked Tobacco Have You Smoked in the Last Year: No - Immunization History Most Recent Influenza Vaccination: 02/26/18 Most Recent Tetanus Shot: 02/04/15 Most Recent Pneumonia Vaccination: never Vaccination Up to Date: Yes Review of Systems All Other Systems Reviewed And Are Negative: Yes Constitutional: Positive: Negative Skin: Positive: Negative Eyes: Positive: Negative ENT: Positive: Negative Respiratory: Positive: Negative Cardiovascular: Positive: Negative Gastrointestinal: Positive: Abdominal Pain Genitourinary: Positive: Dysuria, Frequency, Urgency Motor: Positive: Negative Neurovascular: Positive: Negative Musculoskeletal: Positive: Negative Neurological: Positive: Negative Psychological: Positive: Negative Is Patient Immunocompromised?: No Physical Exam Triage Information Reviewed: Yes Appearance: Well-Appearing Vital Signs: Initial Vital Signs Temp 97.8 F 05/13/19 17:02 Pulse 58 05/13/19 17:02 Resp 16 05/13/19 17:02 BP 117/79 05/13/19 17:02 Pulse Ox 100 05/13/19 17:02 Vital Signs Reviewed: Yes Eye Exam: Normal ENT Exam: Normal Dental Exam: Normal Neck exam: Normal Respiratory: Positive: No respiratory distress Abdomen Description: Positive: Other: - c/o pelvic pressure Musculoskeletal Exam: Normal Neurological Exam: Normal Psychological Exam: Normal Skin Exam: Normal Complaint Female Dx - Differential Dx/Diagnosis Differential Diagnosis/HQI/PQRI: Ureteral Stone, Urinary Tract Infection Provider Diagnosis: Dysuria Discharge ED - Sign-Out/Discharge Documenting (check all that apply): Patient Departure All imaging exams completed and their final reports reviewed: No Studies - Discharge Plan Condition: Stable Disposition: HOME Prescriptions: Nitrofurantoin Monohyd/M-Cryst [Macrobid 100 mg Capsule] 100 mg PO Q12H #10 cap Phenazopyridine TAB* [Pyridium 100 mg TAB*] 100 mg PO Q8H #3 tab Patient Education Materials: Dysuria (ED) Referrals: [facility] [place] [facility] [place] [facility] [place]Outside] - If Needed No Primary Care Phys,NOPCP [Primary Care Provider] - - Billing Disposition and Condition Condition: STABLE Disposition: Home
== END 2019-05-13 17:37 | disposition home or self-care (01) ==
LOC: UCCORT 16:22
DX: R30.0 Dysuria (principal); R35.0 Frequency of micturition; R39.15 Urgency of urination; Z88.2 Allergy status to sulfonamides
CPT/HCPCS: 81003; 84702; 87086; 99212; G0463

== ENCOUNTER 2020-01-30 11:49 | Inpatient (IN) ==
[2020-01-30] MEDS ORDERED: Lactated Ringers 1000 ml BAG 1,000 ML IV ONE ×2 (12:27→21:17)
[2020-01-30] MEDS ORDERED: Lactated Ringers 1000 ml BAG 1,000 ML IV SCH ×2 (13:00→22:00)
[2020-01-30] MEDS ORDERED: Oxytocin in LR 20 UNITS/1,000 ML BAG IVPB SCH (13:00)
[2020-01-30 14:04] LABS: ABS Eosinophils 0.1 10^3/ul (0-0.6); ABS Lymphocytes 2.2 10^3/ul (1.0-4.8); ABS Monocytes 0.5 10^3/ul (0-0.8); ABS Neutrophils 7.2 10^3/ul (1.5-7.7); Eosinophil % 1.4 %; Hematocrit 36 % (35-47); Hemoglobin 12.7 g/dL (12.0-16.0); Lymphocyte % 22.2 %; Mean Corpuscular HGB Conc 35 g/dL (31-36); Mean Corpuscular Hemoglobin 31 pg (27-31); Mean Corpuscular Volume 88 fL (80-97); Mean Platelet Volume 8.9 fL (7.4-10.4); Platelet Count 194 10^3/uL (150-450); Red Blood Count 4.09 10^6 /uL (3.70-4.87); Red Cell Distribution Width 13 % (10-15); White Blood Count 10.1 10^3/uL (3.5-10.8)
[2020-01-30] MEDS ORDERED: OBEPIDURAL 250 ML EPIDURAL ONE (20:08)
[2020-01-30] MEDS ORDERED: Lactated Ringers 1000 ml BAG 500 ML IV PRN ×2 (21:17)
[2020-01-30] MEDS ORDERED: Phenylephrine 40 mcg/mL 10mL (400mcg) SYRINGE IV PUSH PRN (21:17)
[2020-01-30] MEDS ORDERED: Sodium Citrate/Citric Acid LIQ 15 ML UDC PO PRN (21:17)
[2020-01-30] MEDS ORDERED: OBEPIDURAL 250 ML EPIDURAL SCH (22:00)
[2020-01-30] MEDS: Phenylephrine 40 mcg/mL 10mL (400mcg) SYRINGE IV PUSH PRN ×2 (22:22→22:24)
[2020-01-30 23:18] LABS: Urine Benzodiazepine Screen None Detected (None Detect); Urine Cannabinoids Screen None Detected (None Detect); Urine Opiates Screen None Detected (None Detect)
[2020-01-31] MEDS ORDERED: Glycerin ADULT 2.4 gm SUPP PR PRN (03:21)
[2020-01-31] MEDS ORDERED: Witch Hazel PAD JAR TOPICAL PRN (03:21)
[2020-01-31] MEDS ORDERED: Dibucaine 1% OINT 28.35 GM TUBE PR PRN (03:21)
[2020-01-31] MEDS ORDERED: Lactated Ringers 1000 ml BAG 1,000 ML IV SCH (04:00)
[2020-01-31] MEDS ORDERED: Oxytocin in LR 20 UNITS/1,000 ML BAG IVPB SCH (04:00)
[2020-01-31] MEDS ORDERED: Influenza VAC *QUAD* 2020-21* 0.5 ML SYRINGE IM ONE (09:00)
[2020-02-01 08:15] LABS: ABS Eosinophils 0.2 10^3/ul (0-0.6); ABS Lymphocytes 2.8 10^3/ul (1.0-4.8); ABS Monocytes 0.5 10^3/ul (0-0.8); ABS Neutrophils 5.5 10^3/ul (1.5-7.7); Eosinophil % 2.6 %; Hematocrit 27 % (35-47); Hemoglobin 9.8 g/dL (12.0-16.0); Lymphocyte % 30.4 %; Mean Corpuscular HGB Conc 36 g/dL (31-36); Mean Corpuscular Hemoglobin 32 pg (27-31); Mean Corpuscular Volume 89 fL (80-97); Mean Platelet Volume 8.6 fL (7.4-10.4); Platelet Count 167 10^3/uL (150-450); Red Blood Count 3.07 10^6 /uL (3.70-4.87); Red Cell Distribution Width 13 % (10-15); White Blood Count 9.1 10^3/uL (3.5-10.8)
[2020-02-02 08:09] VITALS: BP 109/64
== END 2020-02-02 11:09 | disposition home or self-care (01) | DRG 560 ==
LOC: MCHOBOUT 11:49 → MCHOB 12:16
PROVIDERS: ADMIT Obstetrics & Gynecology; ATTEND Obstetrics & Gynecology